=== PATIENT | female | born 1990 | race Two or more races ===

== ENCOUNTER 2018-05-14 14:48 | Emergency (ER) | payer MEDICAID ==
[2018-05-14 14:54] VITALS: BP 117/59
--- NOTE | 2018-05-14 15:16 | ER Document Report ---
ED General - General Chief Complaint: Back Pain Stated Complaint: TAIL BONE PAIN Time Seen by Provider: 05/14/18 15:00 Mode of Arrival: Ambulatory Information source: Patient Notes: Patient reports that approximately 1 week ago she sat down onto a hard surface with force and began having pain in her tailbone. Patient reports that the pain has been ongoing since the time of injury but has worsened over the last 2 days. TRAVEL OUTSIDE OF THE [place] IN LAST 30 DAYS: No - Related Data Allergies/Adverse Reactions: No Known Allergies Allergy (Verified 05/14/18 14:51) Past Medical History - General Information source: Patient - Social History Smoking Status: Never Smoker Chew tobacco use (# tins/day): No Frequency of alcohol use: None Drug Abuse: None Family History: Reviewed & Not Pertinent Patient has suicidal ideation: No Patient has homicidal ideation: No - Medical History Medical History: Negative Renal/ Medical History: Denies: Hx Peritoneal Dialysis Infectious Medical History: Reports: Hx MRSA Surgical Hx: Negative - Immunizations Hx Diphtheria, Pertussis, Tetanus Vaccination: Yes Review of Systems - Review of Systems Constitutional: No symptoms reported EENT: No symptoms reported Cardiovascular: No symptoms reported Respiratory: No symptoms reported Gastrointestinal: No symptoms reported Genitourinary: No symptoms reported Female Genitourinary: No symptoms reported Musculoskeletal: See HPI Skin: No symptoms reported Hematologic/Lymphatic: No symptoms reported Neurological/Psychological: No symptoms reported Physical Exam - Vital signs Vitals: Temp Pulse Resp BP Pulse Ox 98.7 F 76 16 117/59 L 98 05/14/18 14:53 05/14/18 14:53 05/14/18 14:53 05/14/18 14:53 05/14/18 14:53 - Notes Notes: PHYSICAL EXAMINATION: GENERAL: Well-appearing, well-nourished and in no acute distress. HEAD: Atraumatic, normocephalic. EYES: Pupils equal round and reactive to light, extraocular movements intact, conjunctiva are normal. ENT: Nares patent, oropharynx clear without exudates. Moist mucous membranes. NECK: Normal range of motion, supple without lymphadenopathy LUNGS: Breath sounds clear to auscultation bilaterally and equal. No wheezes rales or rhonchi. HEART: Regular rate and rhythm without murmurs ABDOMEN: Soft, nontender, nondistended abdomen. No guarding, no rebound. No masses appreciated. Female : deferred Musculoskeletal: Normal range of motion, no pitting or edema. No cyanosis. Tenderness to palpation to coccyx as well as distal to coccyx into buttocks. NEUROLOGICAL: Cranial nerves grossly intact. Normal speech, normal gait. Normal sensory, motor exams PSYCH: Normal mood, normal affect. SKIN: Warm, Dry, normal turgor, no rashes or lesions noted. No abscess noted. Course - Re-evaluation Re-evalutation: 05/14/18 15:59 Coccyx xray is negative for any acute findings. Will d/c home at this time. - Vital Signs Vital signs: Temp Pulse Resp BP Pulse Ox 98.7 F 76 16 117/59 L 98 05/14/18 14:53 05/14/18 14:53 05/14/18 14:53 05/14/18 14:53 05/14/18 14:53 Discharge - Discharge Clinical Impression: Contusion Qualifiers: Encounter type: initial encounter Contusion area: lower back Qualified Code(s) : S30.0XXA - Contusion of lower back and pelvis, initial encounter Additional Instructions: Contusion Your injury has resulted in a contusion -- a crushing of the deep tissues. No injury to important structures was detected during the physician's exam. Contusions vary in the amount of pain they cause, and in the length of time required for healing. Typically, the area will become bruised, and will remain painful to touch for two or three weeks. However, most patients are back to working and playing within a few days. After the initial period of rest and cold-packs, your symptoms (together with the doctor's recommendations) will determine how rapidly you can get back to full activity. Usually this means "do what feels okay, but don't do things that hurt." If re-examination was recommended, it's important to follow up as instructed. Call the doctor or return any time if pain increases, if swelling becomes severe, if you develop numbness or weakness in an injured extremity, or if any other alarming symptoms occur. Although I do not see or feel an abscess, however due to the location of your pain, I would suggest using Epsom salt baths to the area, this will help with pain as well as help bring an abscess to the surface if there is one that is unable to be seen at this time. Return to the emergency department if you develop fever or any other symptom that is concerning to you. Please take Tylenol or ibuprofen as needed for pain. Forms: Return to Work Referrals: RAVI BERG, DO [NO LOCAL MD] - Follow up as needed
--- NOTE | 2018-05-14 15:40 | RADIOLOGY REPORT (SQ) ---
EXAM DESCRIPTION: SACRUM AND COCCYX COMPLETED DATE/TIME: 05/14/2018 3:20 pm REASON FOR STUDY: pain s/p hard landing onto area COMPARISON: None. NUMBER OF VIEWS: Three views. TECHNIQUE: AP, lateral, and tilt views of the sacrum and coccyx. LIMITATIONS: None. FINDINGS: MINERALIZATION: Normal. BONES: No acute fracture or dislocation. No worrisome bone lesions. SOFT TISSUES: No soft tissue swelling. No foreign body. OTHER: No other significant finding. IMPRESSION: NEGATIVE STUDY OF THE SACRUM AND COCCYX. TECHNICAL DOCUMENTATION: JOB ID: [id number] [employer]- All Rights Reserved Reading location - IP/workstation name: [email or web address]
== END 2018-05-14 16:06 | disposition home or self-care (01) ==
LOC: ER 14:48
DX: S30.0XXA Contusion of lower back and pelvis, initial encounter (principal); M54.9 Dorsalgia, unspecified; W22.8XXA Striking against or struck by other objects, initial encounter; Z86.14 Personal history of Methicillin resistant Staphylococcus aureus infection
CPT/HCPCS: 72220; 99283

== ENCOUNTER → 2018-06-11 | Outpatient (CLI) | payer MEDICAID ==
[2018-06-11 14:43] LABS: ABSOLUTE BASOPHILS # (AUTO) 0.1 10^3/uL (0.0-0.2); ABSOLUTE EOSINOPHILS # (AUTO) 0.7 10^3/uL (0.0-0.6); ABSOLUTE LYMPHOCYTES (AUTO) 2.5 10^3/uL (0.5-4.7); ABSOLUTE MONOCYTES (AUTO) 0.5 10^3/uL (0.1-1.4); ABSOLUTE NEUT (AUTO) 3.7 10^3/uL (1.7-8.2); BASOPHILS % (AUTO) 0.7 % (0-2); EOSINOPHILS % (AUTO) 9.3 % (0-6); HEMATOCRIT 37.7 % (36.0-47.0); HEMOGLOBIN 12.6 g/dL (12.0-15.5); LYMPHOCYTES % (AUTO) 32.9 % (13-45); MEAN CORPUSCULAR HGB CONC 33.5 g/dL (32.0-36.0); MEAN CORPUSCULAR VOLUME 93 fl (80-97); MONOCYTES % (AUTO) 7.2 % (3-13); PLATELET COUNT 226 10^3/uL (150-450); RED BLOOD COUNT 4.08 10^6/uL (3.72-5.28); RED CELL DISTRIBUTION WIDTH 12.4 % (11.5-14.0); SEGMENTED NEUTROPHILS % (AUTO) 49.9 % (42-78); TOTAL CELLS COUNTED % (AUTO) 100 %; WHITE BLOOD COUNT 7.5 10^3/uL (4.0-10.5)
== END ==
LOC: LAB 14:12
PROVIDERS: ATTEND Nurse Practitioner Family
DX: R10.2 Pelvic and perineal pain (principal)
CPT/HCPCS: 36415; 85025

== ENCOUNTER 2019-01-01 14:17 | Emergency (ER) | payer MEDICAID ==
[2019-01-01] MEDS ORDERED: NORMAL SALINE 1000 ML 1,000 ML IV ONE (14:52)
[2019-01-01] MEDS ORDERED: ONDANSETRON HCL INJ/PF 4 MG/2 ML SDV IV ONE (14:52)
--- NOTE | 2019-01-01 14:54 | ER Document Report ---
ED Medical Screen (RME) - General Chief Complaint: ETOH Abuse Stated Complaint: VOMITING Time Seen by Provider: 01/01/19 14:51 Primary Care Provider: VIPIN HARRELL NP [Primary Care Provider] - Follow up as needed Mode of Arrival: Wheelchair Information source: Patient, Relative TRAVEL OUTSIDE OF THE [place] IN LAST 30 DAYS: No - HPI Patient complains to provider of: ETOH abuse; vomiting Onset: Other - pt. consumed large amount of ETOH last night-- has had continual vomiting since. Denies hematemesis - Related Data Allergies/Adverse Reactions: No Known Allergies Allergy (Verified 01/01/19 14:18) Past Medical History Renal/ Medical History: Denies: Hx Peritoneal Dialysis Infectious Medical History: Reports: Hx MRSA - Immunizations Hx Diphtheria, Pertussis, Tetanus Vaccination: Yes Physical Exam - Vital signs Vitals: Temp Pulse Resp BP Pulse Ox 97.8 F 57 L 16 111/68 99 01/01/19 14:22 01/01/19 14:22 01/01/19 14:22 01/01/19 14:22 01/01/19 14:22 Course - Vital Signs Vital signs: Temp Pulse Resp BP Pulse Ox 97.8 F 57 L 16 111/68 99 01/01/19 14:22 01/01/19 14:22 01/01/19 14:22 01/01/19 14:22 01/01/19 14:22 Doctor's Discharge - Discharge Referrals: VIPIN HARRELL NP [Primary Care Provider] - Follow up as needed
[2019-01-01] MEDS ORDERED: FAMOTIDINE INJ/PF 20 MG/2 ML SDV IV ONE (15:40)
[2019-01-01 15:51] LABS: ABSOLUTE LYMPHOCYTES (AUTO) 1.7 10^3/uL (0.5-4.7); ABSOLUTE MONOCYTES (AUTO) 0.6 10^3/uL (0.1-1.4); ABSOLUTE NEUT (AUTO) 14.8 10^3/uL (1.7-8.2); BASOPHILS % (AUTO) 0.3 % (0-2); EOSINOPHILS % (AUTO) 0.1 % (0-6); HEMATOCRIT 44.6 % (36.0-47.0); MEAN CORPUSCULAR HEMOGLOBIN 30.9 pg (27.0-33.4); MEAN CORPUSCULAR HGB CONC 33.7 g/dL (32.0-36.0); MEAN CORPUSCULAR VOLUME 92 fl (80-97); MONOCYTES % (AUTO) 3.3 % (3-13); PLATELET COUNT 305 10^3/uL (150-450); RED BLOOD COUNT 4.87 10^6/uL (3.72-5.28); RED CELL DISTRIBUTION WIDTH 13.2 % (11.5-14.0); SEGMENTED NEUTROPHILS % (AUTO) 86.3 % (42-78); TOTAL CELLS COUNTED % (AUTO) 100 %; WHITE BLOOD COUNT 17.1 10^3/uL (4.0-10.5)
--- NOTE | 2019-01-01 16:04 | ER Document Report ---
ED General - General Chief Complaint: ETOH Abuse Stated Complaint: VOMITING Time Seen by Provider: 01/01/19 14:51 Primary Care Provider: VIPIN HARRELL, CABLE TENDER [NURSE PRACTITIONER] - Follow up as needed Mode of Arrival: Wheelchair Information source: Patient, Relative, [facility] Records Notes: 28-year-old female with no reported past medical history presents with complaint of nausea, vomiting and abdominal pain that started this morning. Patient admits to a heavy amount of drinking last night. States that her and her significant other finished an entire bottle of crown. She is not a daily drinker. She has had persistent vomiting since this morning. She denies any hematemesis. Last menstrual period was 3 days prior to arrival. Patient denies any suicidal ideation, homicidal ideation. Patient also has mild epigastric abdominal tenderness denies history of pancreatitis. TRAVEL OUTSIDE OF THE [place] IN LAST 30 DAYS: No - HPI Onset: This morning Onset/Duration: Sudden Quality of pain: Burning, Cramping Severity: Mild Associated symptoms: Nausea, Vomiting Exacerbated by: Denies Relieved by: Denies Similar symptoms previously: No Recently seen / treated by doctor: No - Related Data Allergies/Adverse Reactions: No Known Allergies Allergy (Verified 01/01/19 14:18) Past Medical History - General Information source: Patient, Relative - Social History Smoking Status: Never Smoker Chew tobacco use (# tins/day): No Frequency of alcohol use: Occasional Drug Abuse: None Lives with: Spouse/Significant other Family History: Reviewed & Not Pertinent Patient has suicidal ideation: No Patient has homicidal ideation: No - Medical History Medical History: Negative Renal/ Medical History: Denies: Hx Peritoneal Dialysis Infectious Medical History: Reports: Hx MRSA - Immunizations Hx Diphtheria, Pertussis, Tetanus Vaccination: Yes Review of Systems - Review of Systems Notes: REVIEW OF SYSTEMS: CONSTITUTIONAL : Denies fever, chills, or sweats. Denies recent illness. Denies weight loss, recent hospitalizations. EENT: Denies visual changes, eye pain. Denies sore throat, oral lesions, difficulty swallowing. CARDIOVASCULAR: Denies chest pain. Denies palpitations. Denies lower extremity edema. RESPIRATORY: Denies cough. Denies shortness of breath, wheezing. GASTROINTESTINAL: Denies abdominal distention. Denies diarrhea. Denies blood in vomitus, stools, or per rectum. Denies black, tarry stools. Denies constipation. GENITOURINARY: Denies difficulty urinating, painful urination, frequency, blood in urine, or vaginal discharge. MUSCULOSKELETAL: Denies back or neck pain or stiffness. Denies joint pain or swelling. SKIN: Denies rash, lesions or sores. HEMATOLOGIC : Denies easy bruising or bleeding. LYMPHATIC: Denies swollen glands. NEUROLOGICAL: Denies confusion or altered mental status. Denies loss of consciousness. Denies dizziness or lightheadedness. Denies headache. Denies weakness or paralysis. Denies problems difficulty with ambulation, slurred speech. Denies sensory loss, numbness, or tingling. Denies seizures. PSYCHIATRIC: Denies anxiety or stress. Denies depression, suicidal ideation, or homicidal ideation. Denies visual or auditory hallucinations. Physical Exam - Vital signs Vitals: Temp Pulse Resp BP Pulse Ox 97.8 F 57 L 16 111/68 99 01/01/19 14:22 01/01/19 14:22 01/01/19 14:22 01/01/19 14:22 01/01/19 14:22 - Notes Notes: PHYSICAL EXAMINATION: GENERAL: Ill-appearing, mild distress, dry heaving HEAD: Atraumatic, normocephalic. EYES: Pupils equal round and reactive to light, extraocular movements intact, conjunctiva are normal. ENT: Nares patent, oropharynx clear without exudates. Moist mucous membranes. NECK: Normal range of motion, supple without lymphadenopathy LUNGS: Breath sounds clear to auscultation bilaterally and equal. No wheezes rales or rhonchi. HEART: Regular rate and rhythm without murmurs ABDOMEN: Soft, mild epigastric abdominal tenderness. Nondistended abdomen. No guarding, no rebound. No masses appreciated. Female : deferred Musculoskeletal: Normal range of motion, no pitting or edema. No cyanosis. NEUROLOGICAL: Cranial nerves grossly intact. Normal speech, normal gait. Normal sensory, motor exams PSYCH: Normal mood, normal affect. SKIN: Warm, Dry, normal turgor, no rashes or lesions noted. Course - Re-evaluation Re-evalutation: 01/01/19 21:19 Laboratory 01/01/19 01/01/19 01/01/19 15:43 15:43 17:46 WBC 17.1 H RBC 4.87 Hgb 15.0 Hct 44.6 MCV 92 MCH 30.9 MCHC 33.7 RDW 13.2 Plt Count 305 Seg Neutrophils % 86.3 H Lymphocytes % 10.0 L Monocytes % 3.3 Eosinophils % 0.1 Basophils % 0.3 Absolute Neutrophils 14.8 H Absolute Lymphocytes 1.7 Absolute Monocytes 0.6 Absolute Eosinophils 0.0 Absolute Basophils 0.0 Sodium 146.2 H Potassium 4.0 Chloride 108 H Carbon Dioxide 20 L Anion Gap 18 BUN 10 Creatinine 0.69 Est GFR ( Amer) > 60 Est GFR (Non-Af Amer) > 60 Glucose 121 H Calcium 10.8 H Total Bilirubin 0.5 Direct Bilirubin 0.2 Neonat Total Bilirubin Not Reportable Neonat Direct Bilirubin Not Reportable Neonat Indirect Bili Not Reportable AST 34 ALT 23 Alkaline Phosphatase 61 Total Protein 9.5 H Albumin 5.4 H Lipase 47.4 Urine Color YELLOW Urine Appearance SLIGHTLY-CLOUDY Urine pH 8.0 Ur Specific Queen 1.020 Urine Protein NEGATIVE Urine Glucose (UA) NEGATIVE Urine Ketones 20 H Urine Blood NEGATIVE Urine Nitrite NEGATIVE Urine Bilirubin NEGATIVE Urine Urobilinogen NEGATIVE Ur Leukocyte Esterase NEGATIVE Urine WBC (Auto) 3 Urine RBC (Auto) 1 Squamous Epi Cells Auto 7 Urine Mucus (Auto) FEW Urine Ascorbic Acid NEGATIVE Urine HCG, Qual NEGATIVE Urine Opiates Screen Urine Methadone Screen Ur Barbiturates Screen Ur Phencyclidine Scrn Ur Amphetamines Screen U Benzodiazepines Scrn Urine Cocaine Screen U Marijuana (THC) Screen 01/01/19 17:46 WBC RBC Hgb Hct MCV MCH MCHC RDW Plt Count Seg Neutrophils % Lymphocytes % Monocytes % Eosinophils % Basophils % Absolute Neutrophils Absolute Lymphocytes Absolute Monocytes Absolute Eosinophils Absolute Basophils Sodium Potassium Chloride Carbon Dioxide Anion Gap BUN Creatinine Est GFR ( Amer) Est GFR (Non-Af Amer) Glucose Calcium Total Bilirubin Direct Bilirubin Neonat Total Bilirubin Neonat Direct Bilirubin Neonat Indirect Bili AST ALT Alkaline Phosphatase Total Protein Albumin Lipase Urine Color Urine Appearance Urine pH Ur Specific Queen Urine Protein Urine Glucose (UA) Urine Ketones Urine Blood Urine Nitrite Urine Bilirubin Urine Urobilinogen Ur Leukocyte Esterase Urine WBC (Auto) Urine RBC (Auto) Squamous Epi Cells Auto Urine Mucus (Auto) Urine Ascorbic Acid Urine HCG, Qual Urine Opiates Screen NEGATIVE Urine Methadone Screen NEGATIVE Ur Barbiturates Screen NEGATIVE Ur Phencyclidine Scrn NEGATIVE Ur Amphetamines Screen NEGATIVE U Benzodiazepines Scrn NEGATIVE Urine Cocaine Screen NEGATIVE U Marijuana (THC) Screen UNCONFIRMED POSITIVE Temp Pulse Resp BP Pulse Ox 99.3 F 74 16 95/65 L 99 01/01/19 19:35 01/01/19 19:35 01/01/19 19:35 01/01/19 19:35 01/01/19 19:35 28-year-old female with no reported past medical history presents with complaint of nausea, vomiting and abdominal pain that started this morning. Patient admits to a heavy amount of drinking last night. States that her and her significant other finished an entire bottle of crown. She is not a daily drinker. She has had persistent vomiting since this morning. She denies any hematemesis. Vital signs reviewed upon arrival patient is afebrile, normotensive. She is in mild distress due to nausea and epigastric abdominal tenderness but does not appear toxic or dehydrated. Patient was given IV fluids, Zofran, Pepcid and on reevaluation still reports nausea. Reglan and Benadryl were then added. Vomiting during her ED course. Patient is tolerating water prior to discharge. Patient does have a leukocytosis likely stress- induced for multiple episodes of vomiting and without any other evidence of infection. Lipase shows no evidence of pancreatitis. Patient's urine drug screen is positive for marijuana but I do not think her vomiting is due to this. Basically the patient is hung over. Patient will be discharged home with Zofran and Pepcid. Advised to sustain from alcohol. Patient was evaluated and treated as appropriate for the patient's presenting symptoms and complaint, with consideration of any critical or life threatening conditions that may be associated with their obtained history and exam as noted above. All results were discussed with patient and her significant other who is laying in bed with her. Patient provided the opportunity to ask questions, and express concerns. Patient was educated on treatments based on their presumed diagnosis as noted above. At this time we will discharge the patient with return precautions and follow-up recommendations. Verbal discharge instructions given a the bedside. Medication warnings reviewed. Patient is in agreement with this plan and has verbalized understanding of return precautions. After careful consideration I feel that that patient can be safely discharged from the emergency department, they were advised to followup with a primary care physician in 2-3 days. Dictation on this chart was performed using voice recognition software and may result in unintended grammatical, spelling, syntax or errors. 01/01/19 21:19 01/01/19 21:22 Patient has had no - Vital Signs Vital signs: Temp Pulse Resp BP Pulse Ox 99.3 F 74 16 95/65 L 99 01/01/19 19:35 01/01/19 19:35 01/01/19 19:35 01/01/19 19:35 01/01/19 19:35 - Laboratory Result Diagrams: 01/01/19 15:43 01/01/19 15:43 Laboratory results interpreted by me: 01/01/19 01/01/19 01/01/19 15:43 15:43 17:46 WBC 17.1 H Seg Neutrophils % 86.3 H Lymphocytes % 10.0 L Absolute Neutrophils 14.8 H Sodium 146.2 H Chloride 108 H Carbon Dioxide 20 L Glucose 121 H Calcium 10.8 H Total Protein 9.5 H Albumin 5.4 H Urine Ketones 20 H Discharge - Discharge Clinical Impression: Alcohol use Nausea & vomiting Qualifiers: Vomiting type: unspecified Vomiting Intractability: unspecified Qualified Code (s): R11.2 - Nausea with vomiting, unspecified Gastritis Qualifiers: Gastritis type: alcoholic Chronicity: acute Gastritis bleeding: without bleeding Qualified Code(s): K29.20 - Alcoholic gastritis without bleeding Condition: Good Disposition: HOME, SELF-CARE Instructions: Antinausea Medication ([facility]), Gastritis ([facility]), Intravenous (IV) Fluids ([facility]), Vomiting ([facility]) Prescriptions: Famotidine [Pepcid 40 mg Tablet] 40 mg PO DAILY #7 tablet Referrals: VIPIN HARRELL, CABLE TENDER [NURSE PRACTITIONER] - Follow up as needed
[2019-01-01 16:05] LABS: ALANINE AMINOTRANSFERASE 23 U/L (9-52); ALBUMIN 5.4 g/dL (3.5-5.0); ALKALINE PHOSPHATASE 61 U/L (38-126); ANION GAP 18 (5-19); ASPARTATE AMINO TRANSFERASE 34 U/L (14-36); BILIRUBIN,DIRECT 0.2 mg/dL (0.0-0.4); BILIRUBIN,TOTAL 0.5 mg/dL (0.2-1.3); BLOOD UREA NITROGEN 10 mg/dL (7-20); CALCIUM 10.8 mg/dL (8.4-10.2); CARBON DIOXIDE 20 mmol/L (22-30); CHLORIDE 108 mmol/L (98-107); GLUCOSE 121 mg/dL (75-110); LIPASE 47.4 U/L (23-300); SODIUM 146.2 mmol/L (137-145); TOTAL PROTEIN 9.5 g/dL (6.3-8.2)
[2019-01-01] MEDS ORDERED: RINGERS SOLUTION,LACTATED 1,000 ML IV ONE (16:52)
[2019-01-01] MEDS ORDERED: DIPHENHYDRAMINE HCL 50 MG/ML VIAL IV ONE (17:30)
[2019-01-01] MEDS ORDERED: METOCLOPRAMIDE HCL INJ/PF 10 MG/2 ML SDV IV ONE (17:30)
[2019-01-01 18:08] LABS: APPEARANCE,URINE SLIGHTLY-CLOUDY; BILIRUBIN,URINE NEGATIVE (NEGATIVE); COLOR,URINE YELLOW; GLUCOSE, URINE NEGATIVE (NEGATIVE); KETONES,URINE 20 mg/dL (NEGATIVE); LEUKOCYTE ESTERASE,URINE NEGATIVE (NEGATIVE); NITRITE,URINE NEGATIVE (NEGATIVE); PROTEIN,URINE NEGATIVE (NEGATIVE); UROBILINOGEN,URINE NEGATIVE mg/dL (<2.0)
[2019-01-01] MEDS ORDERED: ONDANSETRON ODT 4 MG TAB (6 TAB/ER DISP) PO PRN (18:17)
[2019-01-01 18:34] LABS: URINE AMPHETAMINES SCREEN NEGATIVE; URINE BARBITURATES SCREEN NEGATIVE; URINE BENZODIAZEPINES SCREEN NEGATIVE; URINE COCAINE SCREEN NEGATIVE; URINE MARIJUANA (THC) SCREEN UNCONFIRMED POSITIVE; URINE METHADONE SCREEN NEGATIVE; URINE PHENCYCLIDINE SCREEN NEGATIVE
[2019-01-01 19:36] VITALS: BP 95/65
== END 2019-01-01 19:37 | disposition home or self-care (01) ==
LOC: ER 14:17
DX: K29.20 Alcoholic gastritis without bleeding (principal); R11.2 Nausea with vomiting, unspecified; Z86.14 Personal history of Methicillin resistant Staphylococcus aureus infection
CPT/HCPCS: 99284; 96361; 96374; 96375; 36415; 83690; 85025; 81025; 80053; 81001; 80307; J1200; J2765; J2405; J7030; J7120; S0028